=== PATIENT | female | born 1995 | race Caucasian/White ===

== ENCOUNTER 2017-09-09 06:27 | Day surgery (SDC) | payer BC ==
--- NOTE | ~2017-09-09 | OP ---
PATIENT NAME: ERNESTINA BLACK MEDICAL RECORD: [id number] :89 [facility] ADMISS[facility] DATE: SURGEON: MURTAZA ALMODOVAR MD DATE OF OPERATION: 09/09/2017 PREOPERATIVE DIAGNOSIS: Chronic pharyngitis. POSTOPERATIVE DIAGNOSIS: Chronic pharyngitis. PROCEDURE: Tonsillectomy and adenoidectomy. SURGEON: Murtaza Almodovar MD ANESTHESIA: General orotracheal. BLOOD LOSS: Less than 25 cc. SPECIMENS: Right and left tonsil. COMPLICATIONS: None. DISPOSITION: Recovery stable. FINDINGS: Friable 4+ adenoids and friable inflamed 3+ tonsils, tremendous amount of caseous material. DESCRIPTION OF PROCEDURE: She was brought to the operating room, placed in supine position, sedated and intubated by anesthesia. The eyes were taped, table was turned 90 degrees, head drapes applied, and she was positioned for tonsillectomy. Using a headlight, a Clarissa-Kendell mouth gag was carefully inserted and elevated on towel and chest. The palate was examined and palpated, it was normal. A red rubber catheter was placed through right side of nose. The pharynx was grasped with tonsil clamp to retract the soft palate. Using a mirror, the nasopharynx was examined. Suction cautery on a setting of 35 was used to ablate and suction the adenoid pad just a tremendous amount of inflamed adenoid tissue. The choanae and eustachian tubes were normal after that. The red rubber catheter was let down and removed. The right tonsil was grasped at superior pole with a straight Allis clamp. There was tremendous amount of caseous tonsil tissue inflammation. Spatula tip cautery on a setting of 9 was used to dissect out the tonsil along its capsule, preserving the anterior and posterior tonsillar pillar. The left tonsil was removed in the same fashion. Then, both sides of nose were irrigated with saline. The pharynx was suctioned. Tonsillar fossae were agitated. Suction cautery on a setting of 20 was used to control minimal oozing. With the field clean and dry, she was awakened, extubated and transferred to recovery in good condition. No complications. TRANSINT:[id number] Voice Confirmation ID: [id number] DOCUMENT ID: [id number] OPERATIVE REPORT [id number] NORFFERNESTINA EASON ERIC MD at 1044 CC: [id number] DICTATION DATE: 09/09/17 1034 ENTERPRISE RESOURCE ANALYST: 09/09/17 1246 [facility] 09/09/17 [id number] [place] [address]
--- NOTE | ~2017-09-09 | HP ---
PATIENT: SUNITHA BLACK MEDICAL RECORD: [id number] ACCOUNT: [id number] LOCATION:[facility] : 96 ADMISSION DATE: 09/09/17 HISTORY AND PHYSICAL EXAMINATION HISTORY OF PRESENT ILLNESS: Sunitha is 22 years' old. She has been having persistent problems with tonsillitis and obstructive symptoms. She is being admitted for tonsillectomy and adenoidectomy. PAST MEDICAL HISTORY: Otherwise negative. PAST SURGICAL HISTORY: None. CURRENT MEDICATIONS: None. ALLERGIES: No known drug allergies. PHYSICAL EXAMINATION: GENERAL: She is healthy-appearing. FACE: Normal, symmetric, no lesions. EYES: Sclerae and conjunctivae are normal. EARS: Canals and TMs normal. NOSE: No masses, polyps, or drainage. ORAL CAVITY AND OROPHARYNX: Normal 4+ kissing tonsils. NECK: No masses. No adenopathy. CHEST: Clear. CARDIOVASCULAR: Regular. No murmur. EXTREMITIES: Normal. IMPRESSION: Obstructive adenotonsillar hypertrophy. PLAN: Tonsillectomy and adenoidectomy. TRANSINT:[id number] Voice Confirmation ID: [id number] DOCUMENT ID: [id number] MURTAZA CEBALLOS MD at 1044 CC: [id number] DICTATION DATE: 09/06/17 1518 DISEASE CASE MANAGER RN: 09/06/[address] [facility] 09/09/[address] [address]
[2017-09-09] MEDS ORDERED: ESTRACE 0.5 MG0.5 MG PO (07:09)
[2017-09-09 07:38] LABS: HEMATOCRIT 42.2 % (36.0-48.0); HEMOGLOBIN 13.8 g/dL (12-16); MCH 28.5 pg (26.0-34.0); MCHC 32.7 g/dL (31.0-37.0); RBC 4.85 10x6/uL (4.00-5.40); WBC 14.1 10x3/uL (4.8-10.8)
[2017-09-09 09:25] LABS: HCG URINE NEGATIVE (NEGATIVE)
== END 2017-09-09 11:55 | disposition home or self-care (01) ==
LOC: D.OPS 06:27 → D.PAN 07:30 → D.OPS 08:30
PROVIDERS: Anesthesiology; Otolaryngology
DX: J35.01 Chronic tonsillitis (principal); Z01.812 Encounter for preprocedural laboratory examination